=== PATIENT | female | born 1960 | race American Indian/Alaskan Native ===

== ENCOUNTER 2022-07-07 08:47 | Day surgery (SDC) | payer BC, OTHER ==
[~2022-07-07 08:47] MED LIST: Lactated Ringers 1,000 ML IV SCH; Sodium Chloride 0.9% 10 ML Syringe FLUSH PRN; Sodium Chloride 0.9% 2.5 ML Syringe FLUSH PRN; Sodium Chloride 0.9% 20 ML SDV IV PRN
[2022-07-07] MEDS ORDERED: Propofol 200 MG/20 ML SDV ONE (10:30)
== END 2022-07-07 11:50 | disposition home or self-care (01) ==
LOC: MW.SDS 08:47
PROVIDERS: ATTEND Surgery
DX: K63.5 Polyp of colon (principal); K57.30 Diverticulosis of large intestine without perforation or abscess without bleeding; K20.90 Esophagitis, unspecified without bleeding; K44.9 Diaphragmatic hernia without obstruction or gangrene; K64.3 Fourth degree hemorrhoids; D17.1 Benign lipomatous neoplasm of skin and subcutaneous tissue of trunk; J43.9 Emphysema, unspecified; I44.7 Left bundle-branch block, unspecified; R63.4 Abnormal weight loss; F17.210 Nicotine dependence, cigarettes, uncomplicated; F41.9 Anxiety disorder, unspecified; Z88.1 Allergy status to other antibiotic agents; Z98.890 Other specified postprocedural states; Z68.1 Body mass index [BMI] 19.9 or less, adult; Z79.899 Other long term (current) drug therapy
CPT/HCPCS: 43239; 45380; J2704; J7120

== ENCOUNTER 2022-07-30 07:35 | Day surgery (SDC) | payer OTHER ==
[~2022-07-30 07:35] MED LIST changes: +Bupivacaine 0.5% 30 ML SDV ONE; -Sodium Chloride 0.9% 10 ML Syringe FLUSH PRN; -Sodium Chloride 0.9% 2.5 ML Syringe FLUSH PRN; -Sodium Chloride 0.9% 20 ML SDV IV PRN
[2022-07-30] MEDS ORDERED: Ondansetron 4 MG/2 ML SDV ONE (07:39)
[2022-07-30] MEDS ORDERED: Ketorolac 30 MG/ML SDV ONE (07:39)
[2022-07-30] MEDS ORDERED: Dexamethasone 4 MG/ML 5 ML MDV ONE (07:39)
[2022-07-30] MEDS ORDERED: Lidocaine 2% 5 ML SDV ONE (07:39)
[2022-07-30] MEDS ORDERED: Lidocaine 2% 11 ML Jelly Filled Syringe ONE (07:39)
[2022-07-30] MEDS ORDERED: Propofol 200 MG/20 ML SDV ONE (07:39)
[2022-07-30] MEDS ORDERED: fentaNYL 100 MCG/2 ML SDV ONE (07:39)
[2022-07-30] MEDS ORDERED: fentaNYL 50 MCG/ML SDV IVPUSH PRN (07:42)
[2022-07-30] MEDS ORDERED: Metoclopramide 10 MG/2 ML SDV IVPUSH PRN (07:42)
[2022-07-30] MEDS ORDERED: Albuterol 0.083% 2.5 MG/3 ML Neb Soln NEB PRN (07:42)
[2022-07-30] MEDS ORDERED: Naloxone 0.4 MG/ML SDV IVPUSH PRN (07:42)
[2022-07-30] MEDS ORDERED: HYDROmorphone 1 MG/ML Syringe IVPUSH PRN (07:42)
[2022-07-30] MEDS ORDERED: Morphine 2 MG/ML SYRINGE IVPUSH PRN (07:42)
[2022-07-30] MEDS ORDERED: Ondansetron 4 MG/2 ML SDV IVPUSH PRN (07:42)
[2022-07-30] MEDS ORDERED: Ropivacaine 0.5% 5 MG/ML 30 ML SDV ONE (08:06)
[2022-07-30] MEDS ORDERED: Water For Injection, Sterile 20 ML ONE (08:29)
[2022-07-30] MEDS ORDERED: Dexmedetomidine 200 MCG/2 ML SDV ONE (08:29)
[2022-07-30] MEDS ORDERED: Scopolamine 1.5 MG Transdermal Patch TOP ONE (08:30)
== END 2022-07-30 10:40 | disposition home or self-care (01) ==
LOC: MW.SDS 07:35
PROVIDERS: ATTEND Surgery
DX: K43.9 Ventral hernia without obstruction or gangrene (principal); J44.9 Chronic obstructive pulmonary disease, unspecified; F41.9 Anxiety disorder, unspecified; F17.210 Nicotine dependence, cigarettes, uncomplicated; Z88.1 Allergy status to other antibiotic agents; Z98.890 Other specified postprocedural states; Z79.899 Other long term (current) drug therapy
CPT/HCPCS: 49591; A9270; J1100; J2704; J2795; J3010; J3490; J1885; J2405